=== PATIENT | female | born 1965 | race Caucasian/White ===

== ENCOUNTER 2016-12-07 10:13 | Emergency (ER) | payer BC ==
[~2016-12-07] VITALS: Ht 152.4 cm; Wt 101.6 kg
[~2016-12-07 10:13] MED LIST: CEPH500 PO; HYDR-3533 PO; MAGN500T4 PO; VITA500015 CHEW; [UNRECOGNIZED DRUG - OTHER]
[2016-12-07 10:15] VITALS: BP 135/92; PULSE 85; RESP 16; TEMP 98.2; O2SAT 99
[2016-12-07 10:50] VITALS: BP 129/75; PULSE 85; RESP 18; O2SAT 98
[2016-12-07] MEDS ORDERED: ONDANSETRON HCL 4 MG/2 ML VIAL IM ONE (11:00)
[2016-12-07] MEDS ORDERED: MORPHINE SULFATE 4 MG/ML INJ IM ONE (11:00)
[2016-12-07] MEDS ORDERED: ZOFR4TAB PO (11:01)
[2016-12-07] MEDS ORDERED: TRAM50TA PO (11:01)
--- NOTE | 2016-12-07 11:09 | PD ---
HPI Chief Complaint: Pain: Acute or Chronic Time Seen by Provider: 10:39 Travel History International Travel<30 days: No Contact w/Intl Traveler<30days: No Traveled to known affect area: No History of Present Illness HPI The patient was seen and examined in the presence of the nurse. This patient complains of abdominal pain. Location is right upper quadrant. She's had 3 days of pain. 2 days ago she went to [facility] emergency room and had stents of workup for this problem including lab studies and ultrasound. She reports that all the test was normal and she was discharged with medicine but she is still having pain so came here today. She had nausea but no vomiting or diarrhea or fever. No history of gallbladder or liver or pancreas disease. She has very rare alcohol use. Severity is moderate. No alleviating factors PFSH Past Medical History Thyroid Disease: Yes Influenza Vaccination: No ?: Not LMP: JOSE MIGUEL Menopausal: Yes Past Surgical History Appendectomy: Yes Genitourinary Surgery: Yes (BLADDER REMOVED) Tonsillectomy: Yes Social History Alcohol Use: Yes (RARELY) Tobacco Use: Yes (1 PPD) Substance Use: No Allergies-Medications (Allergen,Severity, Reaction): Coded Allergies: Ampicillin (Verified Allergy, Severe, 12/07/16) Erythromycin (Verified Allergy, Severe, 12/07/16) Penicillin (Verified Allergy, Severe, 12/07/16) Tetracycline (Verified Allergy, Severe, 12/07/16) Vancomycin (Verified Allergy, Severe, 12/07/16) Reported Meds & Prescriptions Reported Meds & Active Scripts Active Tramadol (Tramadol HCl) 50 Mg Tab 50 Mg PO Q6H PRN Zofran (Ondansetron HCl) 4 Mg Tab 4 Mg PO Q6HR PRN Review of Systems General / Constitutional: No: Fever Eyes: No: Visual changes HENT: No: Headaches Cardiovascular: No: Chest Pain or Discomfort Respiratory: No: Shortness of Breath Gastrointestinal: Positive: Nausea, Abdominal Pain Genitourinary: No: Dysuria Musculoskeletal: No: Pain Skin: No Rash Neurologic: No: Weakness Psychiatric: No: Depression Endocrine: No: Polydipsia Hematologic/Lymphatic: No: Easy Bruising Physical Exam Narrative GENERAL: Well-nourished, well-developed patient with epigastric and right upper quadrant pain SKIN: Focused skin assessment reveals no rash and nodules. Skin is Warm and dry. HEAD: Atraumatic. Normocephalic. EYES: Pupils equal and round. No scleral icterus. No injection or drainage. ENT: No nasal bleeding or discharge. Mucous membranes pink and moist. NECK: Trachea midline. No JVD. CARDIOVASCULAR: Regular rate and rhythm. No murmur appreciated. RESPIRATORY: No accessory muscle use. Clear to auscultation. Breath sounds equal bilaterally. GASTROINTESTINAL: Abdomen soft, some epigastric and right upper quadrant tenderness without rebound or guarding, nondistended. Hepatic and splenic margins not palpable. MUSCULOSKELETAL: No obvious deformities. No clubbing. No cyanosis. No edema. NEUROLOGICAL: Awake and alert. No obvious cranial nerve deficits. Motor grossly within normal limits. Normal speech. PSYCHIATRIC: Appropriate mood and affect; insight and judgment normal. Data Data Last Documented VS Vital Signs Date Time Temp Pulse Resp B/P Pulse Ox O2 Delivery O2 Flow Rate FiO2 12/07/16 10:50 85 18 129/75 98 Room Air 12/07/16 10:15 98.2 Orders Ondansetron Inj (Zofran Inj) (12/07/16 11:00) Morphine Inj (Morphine Inj) (12/07/16 11:00) MDM Medical Decision Making Medical Screen Exam Complete: Yes Emergency Medical Condition: Yes Medical Record Reviewed: Yes Differential Diagnosis Biliary colic, hepatitis, pancreatitis Narrative Course I have reviewed the patient's electronic medical record. This patient is here for epigastric and right upper quadrant pain 2 days after having normal labs and ultrasound at a different emergency room locally. I discussed options with the patient. The option to repeat the workup that was just done doesn't seem to be a very good one. I suggested we could obtain records from the outside facility and so I could look through the workup but the patient doesn't really want to wait on that. I doubt it would foreign exchange position clerk as the patient does not seem at all confused about what was done. She would rather me treat her symptoms and follow-up with primary care physician. I gave her injection of morphine and Zofran as well as prescription for tramadol and Zofran. She was taking norco but still having pain Advised to follow-up with her physician but return if she worsens Diagnosis Primary Impression: Abdominal pain Qualified Code: R10.13 - Epigastric pain Additional Instructions: The patient was advised to follow up with their physician and return if they worsen. The patient was warned about potential sedation for the medications they will receive on prescription. Med/Other Pt SpecificInfo: Prescription(s) given Scripts Tramadol 50 Mg Tab50 Mg PO Q6H PRN (PAIN) #25 TAB Ref 0 Prov:Umer Fernandez MD 12/07/16 Ondansetron (Zofran)4 Mg Tab4 Mg PO Q6HR PRN (NAUSEA OR VOMITING) #15 TAB Ref 0 Prov:Umer Fernandez MD 12/07/16 Disposition: 01 DISCHARGE HOME Condition: Stable Umer Fernandez MD December 07, 2016 11:09
== END 2016-12-07 12:01 | disposition home or self-care (01) ==
LOC: PHED 10:13
DX: R10.13 Epigastric pain (principal)
CPT/HCPCS: 96372; 99283; J2270; J2405

== ENCOUNTER 2016-12-20 09:20 | Emergency (ER) | payer BC ==
[~2016-12-20] VITALS: Ht 172.7 cm; Wt 98.0 kg
[~2016-12-20 09:20] MED LIST changes: -CEPH500 PO; -HYDR-3533 PO; -MAGN500T4 PO; +TRAM50TA PO; -VITA500015 CHEW; +ZOFR4TAB PO; -[UNRECOGNIZED DRUG - OTHER]
[2016-12-20 09:24] VITALS: BP 141/110; PULSE 96; RESP 14; TEMP 98.2; O2SAT 100
[2016-12-20] MEDS ORDERED: SODIUM CHLOR 0.9% 1000 ML INJ 1,000 ML IV SCH (09:35)
[2016-12-20] MEDS ORDERED: KETOROLAC TROMETHAMINE 30 MG/ML (IVP) VIAL IVP ONE (09:45)
[2016-12-20] MEDS ORDERED: HYDROmorphone HCL PF 1 MG/ML VIAL IVS ONE (09:45)
[2016-12-20] MEDS ORDERED: ONDANSETRON HCL 4 MG/2 ML VIAL IVP ONE (09:45)
[2016-12-20] MEDS ORDERED: SODIUM CHLORIDE 0.9% FLUSH 10 ML FLUSH IV FLUSH PRN (09:45)
--- NOTE | 2016-12-20 09:52 | PD ---
HPI Chief Complaint: Abdominal Pain Time Seen by Provider: 09:28 Travel History International Travel<30 days: No Contact w/Intl Traveler<30days: No Traveled to known affect area: No History of Present Illness HPI 51-year-old morbidly obese female who presents emergency Department with complaints of abdominal pain. As a young child patient has had a previous cystectomy with construction of neobladder, ureters connected to portion of bowel. Appendectomy at that time. She typically however does not have chronic abdominal pain. Over the course of the last 3 weeks she has been having primarily epigastric and right upper quadrant abdominal pain that has now radiated throughout the entire abdomen and is located mostly in the periumbilical region at the time. Patient was seen at [facility] approximately 2 weeks ago and reportedly had EKG, laboratory work and ultrasound of the abdomen that was negative. Seen here shortly thereafter by one of my colleagues and treated symptomatically and discharged without further workup. Patient states that her symptoms have been waxing and waning but flared over the last 2 days with intractable nausea, vomiting. No hematemesis. Bowel movements have been regular, no urinary symptoms. No fevers or chills. PFSH Past Medical History Thyroid Disease: Yes Menopausal: Yes Past Surgical History Appendectomy: Yes Genitourinary Surgery: Yes (BLADDER REMOVED) Tonsillectomy: Yes Social History Alcohol Use: Yes (RARELY) Tobacco Use: Yes (1 PPD) Substance Use: No Allergies-Medications (Allergen,Severity, Reaction): Coded Allergies: Ampicillin (Verified Allergy, Severe, 12/20/16) Erythromycin (Verified Allergy, Severe, 12/20/16) Penicillin (Verified Allergy, Severe, 12/20/16) Tetracycline (Verified Allergy, Severe, 12/20/16) Vancomycin (Verified Allergy, Severe, 12/20/16) Reported Meds & Prescriptions Reported Meds & Active Scripts Active Review of Systems Except as stated in HPI: all other systems reviewed are Neg Physical Exam Narrative GENERAL: Morbidly obese female in mild distress SKIN: Focused skin assessment warm/dry. HEAD: Normocephalic. EYES: No scleral icterus. No injection or drainage. ENT: Mucous membranes pink and moist. NECK: Supple CARDIOVASCULAR: Regular rate and rhythm. RESPIRATORY: No accessory muscle use. GASTROINTESTINAL: Multiple old surgical scars. Skin breakdown along the pannus skin fold on the lower abdomen. Abdomen soft, diffusely tender to palpation without rebound or guarding, nondistended. Hepatic and splenic margins not palpable. MUSCULOSKELETAL: No obvious deformities. No edema. NEUROLOGICAL: Awake and alert. Normal speech. PSYCHIATRIC: Appropriate mood and affect; insight and judgment normal. Data Data Last Documented VS Vital Signs Date Time Temp Pulse Resp B/P Pulse Ox O2 Delivery O2 Flow Rate FiO2 12/20/16 10:43 18 12/20/16 10:42 84 154/83 97 Room Air 12/20/16 09:24 98.2 Orders Complete Blood Count With Diff (12/20/16 09:35) Comprehensive Metabolic Panel (12/20/16 09:35) Lipase (12/20/16 09:35) Urinalysis - C+S If Indicated (12/20/16:35) Ct Abd/Pel W/O Iv Contrast (12/20/16 09:35) Iv Access Insert/Monitor (12/20/16 09:35) Ecg Monitoring (12/20/16:35) Oximetry (12/20/16:35) Ondansetron Inj (Zofran Inj) (12/20/16 09:45) Sodium Chlor 0.9% 1000 Ml Inj (Ns 1000 M (12/20/16 09:35) Sodium Chloride 0.9% Flush (Ns Flush) (12/20/16 09:45) Ketorolac Inj (Toradol Inj) (12/20/16 09:45) Hydromorphone Pf Inj (Dilaudid Pf Inj) (12/20/16 09:45) Ciprofloxacin 400 Mg Premix (Cipro 400 M (12/20/16 10:45) Labs Laboratory Tests Test 12/20/16 09:45 White Blood Count 15.1 TH/MM3 Red Blood Count 4.96 MIL/MM3 Hemoglobin 14.3 GM/DL Hematocrit 44.3 % Mean Corpuscular Volume 89.2 FL Mean Corpuscular Hemoglobin 28.9 PG Mean Corpuscular Hemoglobin 32.4 % Concent Red Cell Distribution Width 14.3 % Platelet Count 454 TH/MM3 Mean Platelet Volume 8.1 FL Neutrophils (%) (Auto) 79.2 % Lymphocytes (%) (Auto) 11.3 % Monocytes (%) (Auto) 8.2 % Eosinophils (%) (Auto) 0.5 % Basophils (%) (Auto) 0.8 % Neutrophils # (Auto) 12.0 TH/MM3 Lymphocytes # (Auto) 1.7 TH/MM3 Monocytes # (Auto) 1.2 TH/MM3 Eosinophils # (Auto) 0.1 TH/MM3 Basophils # (Auto) 0.1 TH/MM3 CBC Comment AUTO DIFF Differential Comment AUTO DIFF CONFIRMED Sodium Level 138 MEQ/L Potassium Level 4.2 MEQ/L Chloride Level 104 MEQ/L Carbon Dioxide Level 23.2 MEQ/L Anion Gap 11 MEQ/L Blood Urea Nitrogen 15 MG/DL Creatinine 0.97 MG/DL Estimat Glomerular Filtration 61 ML/MIN Rate Random Glucose 111 MG/DL Calcium Level 9.3 MG/DL Total Bilirubin 0.6 MG/DL Aspartate Amino Transf 20 U/L (AST/SGOT) Alanine Aminotransferase 19 U/L (ALT/SGPT) Alkaline Phosphatase 105 U/L Total Protein 8.2 GM/DL Albumin 3.5 GM/DL Lipase 72 U/L [facility] Medical Decision Making Medical Screen Exam Complete: Yes Emergency Medical Condition: Yes Medical Record Reviewed: Yes Differential Diagnosis 51-year-old female with history of cystectomy with neobladder formation, appendectomy here with complaint of 3 weeks of intermittent epigastric/right upper quadrant/periumbilical abdominal pain with 2 days of vomiting. Differential includes gastritis, peptic ulcer disease, pancreatitis, hepatobiliary pathology, bowel obstruction Narrative Course Patient placed on monitor, IV established and blood obtained. Patient given 4 mg Zofran, 30 mg Toradol, 0.5 mg Dilaudid, 1 L normal saline bolus. CBC, CMP, lipase, urinalysis notable for WBC 15.1. CT abdomen and pelvis showed air in the left intrarenal collecting system. Given lack of history of instrumentation possibility of infection not excluded though no perinephric stranding. Patient states she is unable to give urinalysis as she passes urine through the anus and it is intermixed with stool. Patient was treated for possible pyelonephritis, history of this frequently. Was given dose of Cipro here in the ER and will be discharged home with same. Diagnosis Primary Impression: Pyelonephritis Additional Impression: Abdominal pain Qualified Code: R10.9 - Abdominal pain, unspecified location Referrals: [facility] call for appointment Primary Care Physician call for appointment Additional Instructions: Nausea medications as needed. Antibiotics as prescribed. Tylenol, ibuprofen as needed for pain. Follow-up with primary care provider as instructed. Med/Other Pt SpecificInfo: Prescription(s) given Scripts Promethazine (Phenergan)50 Mg Tab50 Mg PO Q6H PRN (NAUSEA OR VOMITING) #10 TAB Ref 0 Prov:Suly Wray MD 12/20/16 Ciprofloxacin (Cipro)250 Mg [id number] Mg PO BID 7 Days Ref 0 Prov:Suly Wray MD 12/20/16 Disposition: 01 DISCHARGE HOME Condition: Stable Suly Wray MD December 20, 2016 09:51
[2016-12-20 10:11] VITALS: RESP 18; O2SAT 98
[2016-12-20 10:11] LABS: BASOPHIL # 0.1 TH/MM3 (0-0.2); BASOPHIL % 0.8 % (0.0-2.0); EOSINOPHIL # 0.1 TH/MM3 (0-0.4); EOSINOPHIL % 0.5 % (0.0-4.0); HEMATOCRIT 44.3 % (35.0-46.0); LYMPH % 11.3 % (9.0-44.0); LYMPHOCYTE # 1.7 TH/MM3 (1.0-4.8); MEAN CELL VOLUME 89.2 FL (80.0-100.0); MEAN CORPUSCULAR HEMOGLOBIN 28.9 PG (27.0-34.0); MEAN CORPUSCULAR HGB CONC 32.4 % (32.0-36.0); MONO % 8.2 % (0.0-8.0); NEUT % 79.2 % (16.0-70.0); PLATELET COUNT 454 TH/MM3 (150-450); RED BLOOD COUNT 4.96 MIL/MM3 (4.00-5.30); RED CELL DISTRIBUTION WIDTH 14.3 % (11.6-17.2); WHITE BLOOD COUNT 15.1 TH/MM3 (4.0-11.0)
[2016-12-20 10:12] LABS: HEMO FLAGS AUTO DIFF
[2016-12-20 10:22] LABS: CHLORIDE 104 MEQ/L (98-107); POTASSIUM 4.2 MEQ/L (3.5-5.1); SODIUM (NA) 138 MEQ/L (136-145)
[2016-12-20 10:26] LABS: ANION GAP 11 MEQ/L (5-15); BICARBONATE 23.2 MEQ/L (21.0-32.0); BLOOD UREA NITROGEN 15 MG/DL (7-18)
[2016-12-20 10:29] LABS: ALT (GPT) 19 U/L (10-53); AST (GOT) 20 U/L (15-37); GLOMERULAR FILTRATION RATE 61 ML/MIN (>89)
[2016-12-20 10:30] LABS: TOTAL BILIRUBIN ADULT 0.6 MG/DL (0.2-1.0)
[2016-12-20 10:31] LABS: SCAN/DIFF AUTO DIFF CONFIRMED
[2016-12-20 10:32] LABS: ALKALINE PHOSPHATASE 105 U/L (45-117)
--- NOTE | 2016-12-20 10:36 | RADHPO ---
EXAM DATE/TIME: 12/20/2016 10:16 [facility] COMPARISON: CT ABDOMEN & PELVIS W/O CONTRAST, February 11, 2016, 14:37. INDICATIONS : Epigastric and right upper quadrant pain. ORAL CONTRAST: No oral contrast ingested. RADIATION DOSE: 22.22 CTDIvol (mGy) MEDICAL HISTORY : None SURGICAL HISTORY : Appendectomy. 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 ENCOUNTER: Initial ACUITY: 3 weeks PAIN SCALE: 5/10 LOCATION: Right upper quadrant epigastric TECHNIQUE: Volumetric scanning of the abdomen and pelvis was performed. Using automated exposure control and ad justment of the mA and/or kV according to patient size, radiation dose was kept as low as reasonably achievable to obtain optimal diagnostic quality images. FINDINGS: Patient is status post appendectomy, and cystectomy with neobladder formation. No pleural or pericard ial effusions. Liver, gallbladder, spleen, pancreas, bilateral adrenal glands and right kidney are un remarkable. The left kidney is atrophic. There is air seen within the collecting system left kidney a s well as a nonobstructing 2.2 mm calculus left lower pole kidney. Uterus and left ovary are unremark able. There is no evidence of bowel obstruction. No inflammatory changes are seen. There is no eviden ce of hydronephrosis on the current examination. Osseous structures are intact. CONCLUSION: 1. Postsurgical changes are noted. 2. Air is seen within the left intrarenal collecting system. Is there a history of recent instrumenta tion? The possibility of infection is not excluded. There is no perinephric stranding. Sridhar Coulter MD on December 20, 2016 at 10:31 Board Certified Radiologist. This report was verified electronically.
[2016-12-20 10:42] VITALS: BP 154/83; PULSE 84; RESP 18; O2SAT 97
[2016-12-20] MEDS ORDERED: CIPROFLOXACIN 400 MG PREMIX 200 ML IV ONE (10:45)
[2016-12-20] MEDS ORDERED: CIPR250T52 PO (11:10)
[2016-12-20] MEDS ORDERED: PROM50TA PO (11:10)
[2016-12-20 11:58] VITALS: BP 126/84; PULSE 82; RESP 18; O2SAT 99
== END 2016-12-20 12:32 | disposition home or self-care (01) ==
LOC: PHED 09:20
DX: N12 Tubulo-interstitial nephritis, not specified as acute or chronic (principal); R10.9 Unspecified abdominal pain
CPT/HCPCS: 74176; 80053; 83690; 85025; 96361; 96374; 96375; J0744; J1170; J1885; J2405; J7030

== ENCOUNTER 2016-12-22 12:52 | Inpatient (IN) | payer BC ==
[~2016-12-22] VITALS: Ht 152.4 cm; Wt 99.2 kg
[~2016-12-22 12:52] MED LIST changes: +CIPR250T52 PO; +PROM50TA PO; -TRAM50TA PO; -ZOFR4TAB PO
[2016-12-22 12:57] VITALS: BP 150/101; PULSE 103; RESP 16; TEMP 98.3; O2SAT 97
[2016-12-22] MEDS ORDERED: AZTREONAM INJ 2,000 MG in SODIUM CHLORIDE 0.9% INJ 100 ML IV STA (13:19)
[2016-12-22] MEDS ORDERED: HYDROmorphone HCL PF 1 MG/ML VIAL IV ONE (13:30)
[2016-12-22] MEDS ORDERED: ONDANSETRON HCL 4 MG/2 ML VIAL IV ONE (13:30)
--- NOTE | 2016-12-22 13:31 | PD ---
HPI Chief Complaint: Abdominal Pain Time Seen by Provider: 13:08 Travel History International Travel<30 days: No Contact w/Intl Traveler<30days: No Traveled to known affect area: No History of Present Illness HPI This 51-year-old female is complaining of abdominal pain. She's been having abdominal pain for several weeks. It has been getting worse the past week. She was a patient in the emergency department last Wednesday with this complaint. At that time her white count was 15,000. A CT scan was done which showed some air in the left infrarenal collecting system. She was at on antibiotics. She says that since being here she's been having increasing pain and vomiting. She says that she's been having fever. She says she has not been able to eat for a week. She has a history of multiple lower abdominal surgeries. She had 9 major operations before the age of 10. Her bladder was apparently not functioning all on the multiple surgeries to try to repair it. He was ultimately removed in her ureters drain into her intestines. There is no way to obtain a urine sample from this lady. She has been told that she has one for kidney. She has not had any surgery since he age of 10. She has had an appendectomy done. PFSH Past Medical History Medical History: Denies Significant Hx Hx Anticoagulant Therapy: No Diabetes: No Thyroid Disease: Yes Tetanus Vaccination: > 5 Years Influenza Vaccination: No ?: Not Menopausal: Yes Past Surgical History Appendectomy: Yes Genitourinary Surgery: Yes (BLADDER REMOVED) Tonsillectomy: Yes Social History Alcohol Use: No Tobacco Use: Yes (/2 PPD) Substance Use: No Allergies-Medications (Allergen,Severity, Reaction): Coded Allergies: Ampicillin (Verified Allergy, Severe, 12/22/16) Erythromycin (Verified Allergy, Severe, 12/22/16) Penicillin (Verified Allergy, Severe, 12/22/16) Tetracycline (Verified Allergy, Severe, 12/22/16) Vancomycin (Verified Allergy, Severe, 12/22/16) Reported Meds & Prescriptions Reported Meds & Active Scripts Active Phenergan (Promethazine HCl) 50 Mg Tab 50 Mg PO Q6H PRN Cipro (Ciprofloxacin HCl) 250 Mg Tab 750 Mg PO BID 7 Days Review of Systems General / Constitutional: Positive: Fever, Chills Eyes: No: Diploplia, Blurred Vision HENT: No: Headaches, Vertigo Cardiovascular: No: Chest Pain or Discomfort, Palpitations Respiratory: No: Cough, Shortness of Breath Gastrointestinal: Positive: Vomiting, Abdominal Pain, No: Hematemesis, Hematochezia Skin: No Rash Neurologic: No: Weakness Endocrine: No: Heat Intolerance, Cold Intolerance Hematologic/Lymphatic: No: Easy Bruising Physical Exam Narrative GENERAL well-developed female. She is uncomfortable with pain SKIN: Focused skin assessment warm/dry. HEAD: Atraumatic. Normocephalic. EYES: Pupils equal and round. No scleral icterus. No injection or drainage. ENT: No nasal bleeding or discharge. Mucous membranes pink and moist. NECK: Trachea midline. No JVD. CARDIOVASCULAR: Regular rate and rhythm. No murmur appreciated. RESPIRATORY: No accessory muscle use. Clear to auscultation. Breath sounds equal bilaterally. GASTROINTESTINAL: Abdomen soft, there are multiple lower abdominal scars. She is quite tender throughout the abdomen and more so on the right side. There is no rigidity MUSCULOSKELETAL: No obvious deformities. No clubbing. No cyanosis. No edema. NEUROLOGICAL: Awake and alert. No obvious cranial nerve deficits. Motor grossly within normal limits. Normal speech. PSYCHIATRIC: Appropriate mood and affect; insight and judgment normal. Data Data Last Documented VS Vital Signs Date Time Temp Pulse Resp B/P Pulse Ox O2 Delivery O2 Flow Rate FiO2 12/22/16 15:25 92 16 156/92 96 Room Air 12/22/16 12:57 98.3 Orders Complete Blood Count With Diff (12/22/16 13:19) Comprehensive Metabolic Panel (12/22/16 13:19) Prothrombin Time / Inr (Pt) (12/22/16 13:19) Act Partial Throm Time (Ptt) (12/22/16 13:19) Lactic Acid Sepsis Protocol (12/22/16 13:19) Urinalysis - C+S If Indicated (12/22/16 13:19) Blood Culture (12/22/16 13:19) Chest, Single Ap (12/22/16 13:19) Blood Glucose (12/22/16 13:19) Iv Access Insert/Monitor (12/22/16 13:19) Oximetry (12/22/16 13:19) Hydromorphone Pf Inj (Dilaudid Pf Inj) (12/22/16 13:30) Ondansetron Inj (Zofran Inj) (12/22/16 13:30) Ct Abd/Pel W Iv Contrast(Rout) (12/22/16 13:19) Aztreonam Inj (Azactam Inj) (12/22/16 13:19) Sodium Chlor 0.9% 1000 Ml Inj (Ns 1000 M (12/22/16 13:45) Lipase (12/22/16 14:15) Iohexol 350 Inj (Omnipaque 350 Inj) (12/22/16 15:20) Ondansetron Inj (Zofran Inj) (12/22/16 15:45) Labs Laboratory Tests Test 12/22/16 12/22/16 12/22/16 13:40 13:45 14:15 Lactic Acid Level 1.1 mmol/L White Blood Count 15.9 TH/MM3 Red Blood Count 4.42 MIL/MM3 Hemoglobin 13.4 GM/DL Hematocrit 39.0 % Mean Corpuscular Volume 88.3 FL Mean Corpuscular Hemoglobin 30.3 PG Mean Corpuscular Hemoglobin 34.3 % Concent Red Cell Distribution Width 13.2 % Platelet Count 437 TH/MM3 Mean Platelet Volume 7.6 FL Neutrophils (%) (Auto) 76.7 % Lymphocytes (%) (Auto) 9.5 % Monocytes (%) (Auto) 6.9 % Eosinophils (%) (Auto) 4.1 % Basophils (%) (Auto) 2.8 % Neutrophils # (Auto) 12.2 TH/MM3 Lymphocytes # (Auto) 1.5 TH/MM3 Monocytes # (Auto) 1.1 TH/MM3 Eosinophils # (Auto) 0.7 TH/MM3 Basophils # (Auto) 0.4 TH/MM3 CBC Comment DIFF FINAL Differential Comment Prothrombin Time 11.9 SEC Prothromb Time International 1.1 RATIO Ratio Activated Partial 26.0 SEC Thromboplast Time Sodium Level 141 MEQ/L Potassium Level 3.6 MEQ/L Chloride Level 111 MEQ/L Carbon Dioxide Level 22.8 MEQ/L Anion Gap 7 MEQ/L Blood Urea Nitrogen 13 MG/DL Creatinine 0.85 MG/DL Estimat Glomerular Filtration 71 ML/MIN Rate Random Glucose 109 MG/DL Calcium Level 8.3 MG/DL Total Bilirubin 0.7 MG/DL Aspartate Amino Transf 6 U/L (AST/SGOT) Alanine Aminotransferase 10 U/L (ALT/SGPT) Alkaline Phosphatase 74 U/L Total Protein 6.2 GM/DL Albumin 3.0 GM/DL Lipase 68 U/L [facility] Medical Decision Making Medical Screen Exam Complete: Yes Emergency Medical Condition: Yes Medical Record Reviewed: Yes Differential Diagnosis Differential includes pyelonephritis, bowel obstruction cholecystitis, pancreatitis Narrative Course White count today is 15.9. When she was here a few days ago was 15.1. Patient says there is no way to obtain a sample for urinalysis because her ureter empties into her colon. A CT scan of the abdomen and pelvis was repeated. The second portion of the duodenum demonstrates wall thickening and pericolic enteric inflammation could be secondary to duodenitis or related to inflammation related to an ulcer. Stable appearance of the kidneys with an atopic type left kidney and air in the collecting system. We are not able to test ladjeet's urine so she may have a UTI which has been refractory to previous treatment. She is having abdominal pain with vomiting and has failed outpatient treatment Diagnosis Primary Impression: Abdominal pain Qualified Code: R10.10 - Pain of upper abdomen Additional Impression: UTI (urinary tract infection) Admitting Information Admitting Physician Requests: Admit Refugio Colón MD December 22, 2016 13:30
[2016-12-22] MEDS ORDERED: SODIUM CHLOR 0.9% 1000 ML INJ 1,000 ML IV ONE (13:45)
--- NOTE | 2016-12-22 13:52 | RADHPO ---
EXAM DATE/TIME: 12/22/2016 13:34 [facility] COMPARISON: No previous studies available for comparison. INDICATIONS : Patient has had pain under her right breast and ribs for two weeks. Patient is a smoker. MEDICAL HISTORY : None. SURGICAL HISTORY : Appendectomy. Tonsillectomy.Cystectomy with construction of mingo-bladder with ureters ENCOUNTER: Initial ACUITY: 2 weeks PAIN SCORE: 8/10 LOCATION: Right chest FINDINGS: A single view of the chest demonstrates the lungs to be symmetrically aerated without evidence of mas s, infiltrate or effusion. The cardiomediastinal contours are unremarkable. Osseous structures are intact. CONCLUSION: No acute disease. Fabio Hernandez MD on December 22, 2016 at 13:51 Board Certified Radiologist. This report was verified electronically.
[2016-12-22 13:55] VITALS: O2SAT 97
[2016-12-22 13:55] LABS: AUTOMATED NEUTROPHIL # 12.2 TH/MM3 (1.8-7.7); BASOPHIL # 0.4 TH/MM3 (0-0.2); BASOPHIL % 2.8 % (0.0-2.0); EOSINOPHIL # 0.7 TH/MM3 (0-0.4); EOSINOPHIL % 4.1 % (0.0-4.0); LYMPH % 9.5 % (9.0-44.0); LYMPHOCYTE # 1.5 TH/MM3 (1.0-4.8); MEAN CELL VOLUME 88.3 FL (80.0-100.0); MEAN CORPUSCULAR HEMOGLOBIN 30.3 PG (27.0-34.0); MEAN CORPUSCULAR HGB CONC 34.3 % (32.0-36.0); MONO % 6.9 % (0.0-8.0); NEUT % 76.7 % (16.0-70.0); PLATELET COUNT 437 TH/MM3 (150-450); RED BLOOD COUNT 4.42 MIL/MM3 (4.00-5.30); RED CELL DISTRIBUTION WIDTH 13.2 % (11.6-17.2); WHITE BLOOD COUNT 15.9 TH/MM3 (4.0-11.0)
[2016-12-22 14:01] LABS: HEMO FLAGS DIFF FINAL
[2016-12-22 14:11] LABS: INTERNATIONAL NORMALIZED RATIO 1.1 RATIO; PROTHROMBIN TIME - PATIENT 11.9 SEC (9.8-11.6)
[2016-12-22 14:31] LABS: CHLORIDE 111 MEQ/L (98-107); POTASSIUM 3.6 MEQ/L (3.5-5.1); SODIUM (NA) 141 MEQ/L (136-145)
[2016-12-22 14:52] LABS: ALKALINE PHOSPHATASE 74 U/L (45-117); ALT (GPT) 10 U/L (10-53); ANION GAP 7 MEQ/L (5-15); AST (GOT) 6 U/L (15-37); BICARBONATE 22.8 MEQ/L (21.0-32.0); BLOOD UREA NITROGEN 13 MG/DL (7-18); GLOMERULAR FILTRATION RATE 71 ML/MIN (>89); TOTAL BILIRUBIN ADULT 0.7 MG/DL (0.2-1.0)
[2016-12-22 15:00] VITALS: BP 161/104; PULSE 87; RESP 18; TEMP 98.1; O2SAT 97
[2016-12-22] MEDS ORDERED: IOHEXOL 350 MG/ML 10 ML VIAL (for RAD DIAG) IV ONE (15:20)
[2016-12-22 15:25] VITALS: BP 156/92; PULSE 92; RESP 16; O2SAT 96
--- NOTE | 2016-12-22 15:34 | RADHPO ---
EXAM DATE/TIME: 12/22/2016 15:06 [place] COMPARISON: CT ABDOMEN & PELVIS W/O CONTRAST, February 11, 2016, 14:37. CT ABDOMEN & PELVIS W/O CONTRAST, December 20 17, 10:16. INDICATIONS : Increasing upper quadrant pain and fever since prior scan done two days ago. IV CONTRAST: 85 cc Omnipaque 350 (iohexol) IV ORAL CONTRAST: No oral contrast ingested. RADIATION DOSE: 22.27 CTDIvol (mGy) MEDICAL HISTORY : None SURGICAL HISTORY : Appendectomy. 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 ENCOUNTER: [facility] ACUITY: 2 days PAIN SCALE: 7/10 LOCATION: upper quadrant TECHNIQUE: Volumetric scanning of the abdomen and pelvis was performed. Using automated exposure control and ad justment of the mA and/or kV according to patient size, radiation dose was kept as low as reasonably achievable to obtain optimal diagnostic quality images. FINDINGS: LOWER LUNGS: The visualized lower lungs are clear. LIVER: Homogeneous density with 5 mm low-density lesion in the right liver that is too small to characterize . There is focal fat adjacent to the falciform ligament. There is no dilation of the biliary tree. No calcified gallstones. SPLEEN: Normal size without lesion. PANCREAS: Pancreatic body and tail demonstrate no abnormality. There are inflammatory changes adjacent to the p ancreatic head adjacent to the thickened duodenum. KIDNEYS: Left kidney remains atrophic with air in the renal collecting system. There is a stable 2 mm nonobstr ucting stone in the left lower pole renal collecting system. ADRENAL GLANDS: Within normal limits. VASCULAR: There is no aortic aneurysm. BOWEL/MESENTERY: The stomach and colon demonstrate no acute abnormality. The second portion of the duodenum demonstrat es wall thickening. There has been prior bowel surgery in the left lower quadrant and the ureters may connect with a segment of colon. There is no free intraperitoneal air or fluid. ABDOMINAL WALL: Within normal limits. RETROPERITONEUM: There is no lymphadenopathy. The inflammatory changes are present in the anterior pararenal space adj acent to the thickened duodenum. BLADDER: Urinary bladder is surgically absent. REPRODUCTIVE: Within normal limits. INGUINAL: There is no lymphadenopathy or hernia. MUSCULOSKELETAL: There is stable widening of the pubic symphysis and stable sclerosis of the sacroiliac joints bilater ally. CONCLUSION: 1. The second portion the duodenum demonstrates wall thickening and perienteric inflammation. These i nflammatory changes abut the pancreatic head as well. A duodenitis is the favored etiology and could be infectious or related to inflammation related to ulcer. Alternatively, a groove pancreatitis coul d give a similar appearance. 2. Stable appearance of the kidneys with atrophic left kidney and air in the collecting system in thi s patient with history of a cystectomy and neobladder creation. 3. There is a 5 mm low-density lesion in the liver that is too small to characterize. Virgil Holt MD on December 22, 2016 at 15:23 Board Certified Radiologist. This report was verified electronically.
[2016-12-22] MEDS ORDERED: ONDANSETRON HCL 4 MG/2 ML VIAL IV PUSH ONE (15:45)
[2016-12-22] MEDS ORDERED: SODIUM CHLOR 0.9% 1000 ML INJ 1,000 ML IV SCH (16:47)
[2016-12-22] MEDS ORDERED: NALOXONE HCL 0.4 MG/ML AMP IV PRN (17:00)
[2016-12-22] MEDS ORDERED: SODIUM CHLORIDE 0.9% FLUSH 10 ML FLUSH IV FLUSH PRN (17:00)
[2016-12-22] MEDS ORDERED: ENALAPRILAT 1.25 MG/ML VIAL IV PUSH PRN (17:45)
[2016-12-22] MEDS ORDERED: HYDROmorphone HCL PF 1 MG/ML VIAL IV PUSH PRN (17:45)
--- NOTE | 2016-12-22 17:47 | HHI.HP ---
[facility] Service [facility] Primary Care Physician No Primary Care Physician Admission Diagnosis ABDOMINAL PAIN, UTI Diagnoses: (1) Abdominal pain Diagnosis: Principal (2) UTI (urinary tract infection) Diagnosis: Principal (3) Duodenitis Diagnosis: Principal (4) Nicotine dependence Diagnosis: Secondary Travel History International Travel<30 Days: No Contact w/Intl Traveler <30 Da: No Traveled to Known Affected Are: No Sepsis Criteria SIRS Criteria (2 or more): Heart rate over 90, WBC > 95451, < 4000 or > 10% bands Sepsis Criteria (SIRS+source): Infect source susp/known History of Present Illness Mrs. Marley is a 51-year-old female. She has a history of 8-9 blood or surgeries as a child and currently has both ureters and tingling into the small intestine. She is here today with complaints of fatigue and upper abdominal pain. She reports that approximately once every 2 years she ends up getting pyelonephritis. Typically her symptoms are severe back pain and fevers. She has been feeling fevers and chills at home but her pain is located at the epigastrium. Imaging shows evidence of duodenitis. Given her abnormal urinary anatomy there would be no way to test make sure that she doesn't have development of a urinary tract infection again. In the past she has had an appendectomy and a tonsillectomy. She is a smoker and smokes approximately one half pack per day. Leukocytosis is present. Abdominal pain is her primary complaint. She requests pain medicine when seen. Leukocytosis and tachycardia are present, no fever, with source of duodenitis as likely bacterial infection disqualifies her for sepsis. Review of Systems Constitutional: DENIES: Diaphoretic episodes, Fever, Chills Eyes: DENIES: Blurred vision, Diplopia Ears, nose, mouth, throat: DENIES: Tinnitus, Hearing loss Respiratory: DENIES: Cough, Shortness of breath Cardiovascular: DENIES: Chest pain, Palpitations, Syncope Gastrointestinal: COMPLAINS OF: Abdominal pain, DENIES: Black stools, Bloody stools Musculoskeletal: DENIES: Joint pain, Muscle aches Integumentary: DENIES: Abnormal pigmentation Hematologic/lymphatic: DENIES: Bruising Immunologic/allergic: DENIES: Eczema Neurologic: DENIES: Abnormal gait Psychiatric: DENIES: Anxiety, Confusion Past Family Social History Past Medical History Chronic kidney disease (4 kidneys and 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) Nicotine dependence Recurrent pyelonephritis Past Surgical History Appendectomy Tonsillectomy Ureters surgically placed to drain and small bowel 8-9 Bladder surgeries as a child Reported Medications Reported Meds & Active Scripts Active Phenergan (Promethazine HCl) 50 Mg Tab 50 Mg PO Q6H PRN Cipro (Ciprofloxacin HCl) 250 Mg Tab 750 Mg PO BID 7 Days Allergies: Coded Allergies: Ampicillin (Verified Allergy, Severe, 12/22/16) Erythromycin (Verified Allergy, Severe, 12/22/16) Penicillin (Verified Allergy, Severe, 12/22/16) Tetracycline (Verified Allergy, Severe, 12/22/16) Vancomycin (Verified Allergy, Severe, 12/22/16) Family History Lung cancer and mother Social History Smoking one half pack per day No alcohol abuse No drug abuse Physical Exam Vital Signs Vital Signs Date Time Temp Pulse Resp B/P Pulse Ox O2 Delivery O2 Flow Rate FiO2 12/22/16 15:25 92 16 156/92 96 Room Air 12/22/16 14:30 18 12/22/16 13:55 97 Room Air 12/22/16 12:57 98.3 103 16 150/101 97 Physical Exam GENERAL: This is a well-nourished, well-developed patient, in no apparent distress. SKIN: No rashes, ecchymoses or lesions. Cool and dry. HEAD: Atraumatic. Normocephalic. No temporal or scalp tenderness. EYES: Pupils equal round and reactive. Extraocular motions intact. No scleral icterus. No injection or drainage. ENT: Nose without bleeding, purulent drainage or septal hematoma. Throat without erythema, tonsillar hypertrophy or exudate. Uvula midline. Airway patent. NECK: Trachea midline. No JVD or lymphadenopathy. Supple, nontender, no meningeal signs. CARDIOVASCULAR: Regular rate and rhythm without murmurs, gallops, or rubs. RESPIRATORY: Clear to auscultation. Breath sounds equal bilaterally. No wheezes , rales, or rhonchi. GASTROINTESTINAL: Abdomen soft, non-tender, nondistended. No hepato-splenomegaly , or palpable masses. No guarding. MUSCULOSKELETAL: Extremities without clubbing, cyanosis, or edema. No joint tenderness, effusion, or edema noted. No calf tenderness. Negative Homans sign bilaterally. NEUROLOGICAL: Awake and alert. Cranial nerves II through XII intact. Motor and sensory grossly within normal limits. Five out of 5 muscle strength in all muscle groups. Normal speech. Laboratory Laboratory Tests Test 12/22/16 12/22/16 12/22/16 13:40 13:45 14:15 Lactic Acid Level 1.1 White Blood Count 15.9 Red Blood Count 4.42 Hemoglobin 13.4 Hematocrit 39.0 Mean Corpuscular Volume 88.3 Mean Corpuscular Hemoglobin 30.3 Mean Corpuscular Hemoglobin 34.3 Concent Red Cell Distribution Width 13.2 Platelet Count 437 Mean Platelet Volume 7.6 Neutrophils (%) (Auto) 76.7 Lymphocytes (%) (Auto) 9.5 Monocytes (%) (Auto) 6.9 Eosinophils (%) (Auto) 4.1 Basophils (%) (Auto) 2.8 Neutrophils # (Auto) 12.2 Lymphocytes # (Auto) 1.5 Monocytes # (Auto) 1.1 Eosinophils # (Auto) 0.7 Basophils # (Auto) 0.4 CBC Comment DIFF FINAL Differential Comment Prothrombin Time 11.9 Prothromb Time International 1.1 Ratio Activated Partial 26.0 Thromboplast Time Sodium Level 141 Potassium Level 3.6 Chloride Level 111 Carbon Dioxide Level 22.8 Anion Gap 7 Blood Urea Nitrogen 13 Creatinine 0.85 Estimat Glomerular Filtration 71 Rate Random Glucose 109 Calcium Level 8.3 Total Bilirubin 0.7 Aspartate Amino Transf 6 (AST/SGOT) Alanine Aminotransferase 10 (ALT/SGPT) Alkaline Phosphatase 74 Total Protein 6.2 Albumin 3.0 Lipase 68 Date/Time Procedure Status Source Growth 12/22/16 13:45 Aerobic Blood Culture Received Blood Peripheral Pending 12/22/16 13:45 Anaerobic Blood Culture Received Blood Peripheral Pending Result Diagram: 12/22/16 1345 12/22/16 1415 Imaging Last Impressions Chest X-Ray 12/22/16 1319 Signed Impressions: Service Date/Time: Thursday, December 22, 2016 13:34 - CONCLUSION: No acute disease. Fabio Hernandez MD Abdomen/Pelvis CT 12/22/16 1319 Signed Impressions: Service Date/Time: Thursday, December 22, 2016 15:06 - CONCLUSION: 1. The second portion the duodenum demonstrates wall thickening and perienteric inflammation. These inflammatory changes abut the pancreatic head as well. A duodenitis is the favored etiology and could be infectious or related to inflammation related to ulcer. Alternatively, a groove pancreatitis could give a similar appearance. 2. Stable appearance of the kidneys with atrophic left kidney and air in the collecting system in this patient with history of a cystectomy and neobladder creation. 3. There is a 5 mm low-density lesion in the liver that is too small to characterize. Virgil Holt MD Septic Shock Reassessment Heart: Regular rate and rhythm Lungs: Clear Skin: Warm Peripheral Pulses: Bounding Right Radial Bounding Left Radial Capillary Refill: Brisk Assessment and Plan Problem List: (1) Pyelonephritis ICD Code: N12 Status: Acute (2) UTI (urinary tract infection) ICD Code: N39.0 Status: Acute (3) Abdominal pain ICD Code: R10.9 Status: Acute (4) Duodenitis ICD Code: K29.80 Status: Acute (5) Nicotine dependence ICD Code: F17.200 Status: Acute Assessment and Plan Assessment and plan 51-year-old female with a history of recurrent pyelonephritis who is here with abdominal pain. Sepsis IV hydration Monitor tachycardia and leukocytosis Telemetry Follow for resolution Acute abdominal pain. Duodenitis Aztreonam Flagyl IV hydration Clear fluids by mouth intake Hypertension When necessary enalapril Possible UTI Possible pyelonephritis Chronic kidney disease Aztreonam Is no way to obtain a urine sample Follow renal function Nicotine dependence NicoDerm placed DVT prophylaxis Lovenox Physician Certification 2 Midnight Certification Type: Admission for Inpatient Services Order for Inpatient Services The services are ordered in accordance with Medicare regulations or non- Medicare payer requirements, as applicable. In the case of services not specified as inpatient-only, they are appropriately provided as inpatient services in accordance with the 2-midnight benchmark. Estimated LOS (days): 3 days is the estimated time the patient will need to remain in the hospital, assuming treatment plan goals are met and no additional complications. Post-Hospital Plan: Home Problem Qualifiers (1) Abdominal pain: Qualified Code: R10.10 - Pain of upper abdomen Ryan Jalloh MD December 22, 2016 17:47
[2016-12-22] MEDS ORDERED: HYDROmorphone HCL PF 1 MG/ML VIAL IV PUSH ONE (18:00)
[2016-12-22] MEDS: SODIUM CHLOR 0.9% 1000 ML INJ 1,000 ML IV SCH ×2 (18:04→21:39)
[2016-12-22] MEDS: ENOXAPARIN SODIUM 40 MG/0.4 ML SYRINGE SQ SCH (18:14)
[2016-12-22] MEDS: metroNIDAZOLE 500 MG INJ 100 ML IV SCH (18:14)
[2016-12-22 20:00] VITALS: BP 155/80; PULSE 90; RESP 20; TEMP 97.9; O2SAT 93
[2016-12-22] MEDS: SODIUM CHLORIDE 0.9% FLUSH 10 ML FLUSH IV FLUSH SCH (21:00)
[2016-12-22] MEDS: ONDANSETRON HCL 4 MG/2 ML VIAL IVP PRN (21:38)
[2016-12-22] MEDS: AZTREONAM INJ 2,000 MG in SODIUM CHLORIDE 0.9% INJ 100 ML IV SCH (21:39)
[2016-12-23] VITALS: BP 137/103; PULSE 86; RESP 21; TEMP 97.4; O2SAT 99
[2016-12-23] MEDS: PANTOPRAZOLE SODIUM 40 MG VIAL IV PUSH SCH ×2 (00:35→09:31)
[2016-12-23] MEDS: HYDROmorphone HCL PF 1 MG/ML VIAL IV PUSH PRN ×4 (00:35→14:13)
[2016-12-23] MEDS: metroNIDAZOLE 500 MG INJ 100 ML IV SCH ×3 (02:58→17:25)
[2016-12-23] MEDS: ONDANSETRON HCL 4 MG/2 ML VIAL IVP PRN ×3 (03:47→17:26)
[2016-12-23] MEDS: AZTREONAM INJ 2,000 MG in SODIUM CHLORIDE 0.9% INJ 100 ML IV SCH ×3 (06:32→23:07)
[2016-12-23 07:42] LABS: AUTOMATED NEUTROPHIL # 9.5 TH/MM3 (1.8-7.7); BASOPHIL # 0.1 TH/MM3 (0-0.2); BASOPHIL % 0.4 % (0.0-2.0); EOSINOPHIL # 0.6 TH/MM3 (0-0.4); EOSINOPHIL % 4.7 % (0.0-4.0); LYMPH % 14.8 % (9.0-44.0); LYMPHOCYTE # 1.9 TH/MM3 (1.0-4.8); MEAN CELL VOLUME 90.1 FL (80.0-100.0); MEAN CORPUSCULAR HEMOGLOBIN 30.3 PG (27.0-34.0); MEAN CORPUSCULAR HGB CONC 33.6 % (32.0-36.0); MONO % 8.6 % (0.0-8.0); NEUT % 71.5 % (16.0-70.0); PLATELET COUNT 373 TH/MM3 (150-450); RED BLOOD COUNT 3.89 MIL/MM3 (4.00-5.30); RED CELL DISTRIBUTION WIDTH 13.9 % (11.6-17.2); WHITE BLOOD COUNT 13.2 TH/MM3 (4.0-11.0)
[2016-12-23 07:45] LABS: HEMO FLAGS DIFF FINAL
[2016-12-23 07:49] LABS: CHLORIDE 111 MEQ/L (98-107); POTASSIUM 3.6 MEQ/L (3.5-5.1); SODIUM (NA) 141 MEQ/L (136-145)
[2016-12-23 07:53] LABS: ANION GAP 10 MEQ/L (5-15); BICARBONATE 19.7 MEQ/L (21.0-32.0); BLOOD UREA NITROGEN 9 MG/DL (7-18)
[2016-12-23 07:56] LABS: ALT (GPT) 12 U/L (10-53); AST (GOT) 8 U/L (15-37)
[2016-12-23 07:57] LABS: GLOMERULAR FILTRATION RATE 83 ML/MIN (>89)
[2016-12-23 07:58] LABS: TOTAL BILIRUBIN ADULT 0.4 MG/DL (0.2-1.0)
[2016-12-23 07:59] LABS: ALKALINE PHOSPHATASE 71 U/L (45-117)
[2016-12-23 08:00] VITALS: BP 134/96; PULSE 93; RESP 17; TEMP 98.1; O2SAT 98
[2016-12-23] MEDS: SODIUM CHLORIDE 0.9% FLUSH 10 ML FLUSH IV FLUSH SCH ×2 (09:31→21:00)
[2016-12-23] MEDS: SODIUM CHLOR 0.9% 1000 ML INJ 1,000 ML IV SCH ×2 (09:32→17:45)
--- NOTE | 2016-12-23 09:33 | HHI.PR ---
Subjective Remarks Slight decrease in nausea and vomiting this morning. Pain remains. Blood pressures remain slightly elevated. She is not yet ready for diet advancement. Objective Vital Signs Date Time Temp Pulse Resp B/P Pulse Ox O2 Delivery O2 Flow Rate FiO2 12/23/16 08:00 98.1 93 17 134/96 98 12/23/16 05:13 19 12/23/16 00:00 97.4 86 21 137/103 99 12/22/16 20:00 97.9 90 20 155/80 93 12/22/16 15:25 92 16 156/92 96 Room Air 12/22/16 15:00 98.1 87 18 161/104 97 12/22/16 14:30 18 12/22/16 13:55 97 Room Air 12/22/16 12:57 98.3 103 16 150/101 97 I/O 12/22/16 12/22/16 12/22/16 12/23/16 12/23/16 12/23/16 06:59 14:59 22:59 06:59 14:59 22:59 Intake Total 1340 ml 240 ml Balance 1340 ml 240 ml Intake Oral 240 ml 240 ml IV Total 1100 ml # Voids 1 2 # Bowel Movements 0 0 Result Diagram: 12/23/16 0545 12/23/16 0545 Imaging Last Impressions Chest X-Ray 12/22/16 1319 Signed Impressions: Service Date/Time: Thursday, December 22, 2016 13:34 - CONCLUSION: No acute disease. Fabio Hernandez MD Abdomen/Pelvis CT 12/22/16 1319 Signed Impressions: Service Date/Time: Thursday, December 22, 2016 15:06 - CONCLUSION: 1. The second portion the duodenum demonstrates wall thickening and perienteric inflammation. These inflammatory changes abut the pancreatic head as well. A duodenitis is the favored etiology and could be infectious or related to inflammation related to ulcer. Alternatively, a groove pancreatitis could give a similar appearance. 2. Stable appearance of the kidneys with atrophic left kidney and air in the collecting system in this patient with history of a cystectomy and neobladder creation. 3. There is a 5 mm low-density lesion in the liver that is too small to characterize. Virgil Holt MD Objective Remarks GENERAL: NAD, A&Ox3 SKIN: Warm and dry. HEAD: Normocephalic. EYES: No scleral icterus. No injection or drainage. NECK: Supple, trachea midline. No JVD or lymphadenopathy. CARDIOVASCULAR: Regular rate and rhythm without murmurs, gallops, or rubs. RESPIRATORY: Breath sounds equal bilaterally. No accessory muscle use. GASTROINTESTINAL: Abdomen soft, nondistended. She has mild tenderness in the epigastrium. MUSCULOSKELETAL: No cyanosis, or edema. Medications and IVs Administered Medications Medications (Trade) Dose Ordered Sig/Rohan Route PRN Reason Start Time Stop Time Status Last Admin Dose Admin Ondansetron HCl (Zofran Inj) 4 mg Q6H PRN IVP NAUSEA OR VOMITING 12/22/16 17:00 12/23/16 03:47 Enoxaparin Sodium 40 mg 40 mg Q24H SQ 12/22/16 18:00 12/22/16 18:14 Sodium Chloride 1,000 ml @ 125 mls/hr Q8H IV 12/22/16 17:45 12/22/16 21:39 Aztreonam 2000 mg/ Sodium Chloride 100 ml @ 200 mls/hr Q8H IV 12/22/16 22:00 12/23/16 06:32 Metronidazole (Flagyl 500 Mg Inj) 100 ml @ 100 mls/hr Q8H IV 12/22/16 18:00 12/23/16 02:58 Pantoprazole Sodium (Protonix Inj) 40 mg DAILY IV PUSH 12/22/16 23:45 12/23/16 00:35 Hydromorphone HCl (Dilaudid Pf Inj) 1 mg Q4H PRN IV PUSH PAIN SCALE 4 TO 10 12/23/16 01:45 12/23/16 04:43 A/P Problem List: (1) Nicotine dependence ICD Code: F17.200 (2) Pyelonephritis ICD Code: N12 (3) UTI (urinary tract infection) ICD Code: N39.0 (4) Abdominal pain ICD Code: R10.9 (5) Duodenitis ICD Code: K29.80 Assessment and Plan Assessment and plan 51-year-old female with a history of recurrent pyelonephritis who is here with abdominal pain. Slight improvements overnight on treatment. Continue liquid diet. Continue to monitor. Sepsis has resolved. Sepsis Resolved Acute abdominal pain. Duodenitis Continue Aztreonam Continue Flagyl IV hydration Clear fluids by mouth intake Hypertension When necessary enalapril Possible UTI Possible pyelonephritis Chronic kidney disease Aztreonam Is no way to obtain a urine sample Follow renal function Nicotine dependence NicoDerm placed DVT prophylaxis Lovenox Problem Qualifiers (1) Abdominal pain: Qualified Code: R10.10 - Pain of upper abdomen Ryan Jalloh MD December 23, 2016 9:33 am
[2016-12-23 12:00] VITALS: BP 107/69; PULSE 83; RESP 17; TEMP 98; O2SAT 97
[2016-12-23 16:00] VITALS: BP 109/71; PULSE 77; RESP 18; TEMP 98.2; O2SAT 98
[2016-12-23] MEDS: ENOXAPARIN SODIUM 40 MG/0.4 ML SYRINGE SQ SCH (17:25)
[2016-12-23 20:00] VITALS: BP 103/77; PULSE 79; RESP 20; TEMP 97.4; O2SAT 97
[2016-12-23 21:23] LABS: POTASSIUM 3.6 MEQ/L (3.5-5.1)
[2016-12-23 21:26] LABS: BICARBONATE 19.5 MEQ/L (21.0-32.0); MAGNESIUM 1.9 MG/DL (1.5-2.5)
[2016-12-24] VITALS: BP 102/64; PULSE 83; RESP 20; TEMP 96.4; O2SAT 97
[2016-12-24] MEDS: HYDROmorphone HCL PF 1 MG/ML VIAL IV PUSH PRN ×6 (00:13→22:31)
[2016-12-24] MEDS: metroNIDAZOLE 500 MG INJ 100 ML IV SCH ×3 (02:00→18:17)
[2016-12-24] MEDS: AZTREONAM INJ 2,000 MG in SODIUM CHLORIDE 0.9% INJ 100 ML IV SCH ×3 (05:25→22:21)
[2016-12-24] MEDS: SODIUM CHLOR 0.9% 1000 ML INJ 1,000 ML IV SCH ×3 (05:25→14:21)
[2016-12-24 08:00] VITALS: BP 112/78; PULSE 73; RESP 18; TEMP 97.2; O2SAT 95
[2016-12-24] MEDS: PANTOPRAZOLE SODIUM 40 MG VIAL IV PUSH SCH (08:56)
[2016-12-24] MEDS: SODIUM CHLORIDE 0.9% FLUSH 10 ML FLUSH IV FLUSH SCH ×2 (08:56→22:21)
--- NOTE | 2016-12-24 09:50 | HHI.PR ---
Subjective Remarks still with some abdominal pain although she says that the pain is better. no nausea or vomiting. tolerating the liquid diet. Objective Vitals Vital Signs Date Time Temp Pulse Resp B/P Pulse Ox O2 Delivery O2 Flow Rate FiO2 12/24/16 08:00 97.2 73 18 112/78 95 12/24/16 00:00 96.4 83 20 102/64 97 12/23/16 20:00 97.4 79 20 103/77 97 12/23/16 16:00 98.2 77 18 109/71 98 12/23/16 14:32 18 12/23/16 12:00 98.0 83 17 107/69 97 I/O 12/23/16 12/23/16 12/23/16 12/24/16 12/24/16 12/24/16 07:00 15:00 23:00 07:00 15:00 23:00 Intake Total 240 ml 410 ml 480 ml Balance 240 ml 410 ml 480 ml Intake Oral 240 ml 410 ml 480 ml # Voids 2 7 # Bowel Movements 0 2 Result Diagram: 12/23/16 0545 12/23/162104 Imaging Last Impressions Chest X-Ray 12/22/169 Signed Impressions: Service Date/Time: Thursday, December 22, 2016 13:34 - CONCLUSION: No acute disease. Fabio Hernandez MD Abdomen/Pelvis CT 12/22/169 Signed Impressions: Service Date/Time: Thursday, December 22, 2016 15:06 - CONCLUSION: 1. The second portion the duodenum demonstrates wall thickening and perienteric inflammation. These inflammatory changes abut the pancreatic head as well. A duodenitis is the favored etiology and could be infectious or related to inflammation related to ulcer. Alternatively, a groove pancreatitis could give a similar appearance. 2. Stable appearance of the kidneys with atrophic left kidney and air in the collecting system in this patient with history of a cystectomy and neobladder creation. 3. There is a 5 mm low-density lesion in the liver that is too small to characterize. Virgil Holt MD Objective Remarks GENERAL: This is a well-nourished, well-developed patient, in no apparent distress. CARDIOVASCULAR: Regular rate and regular rhythm without murmurs, gallops, or rubs. RESPIRATORY: Clear to auscultation. Breath sounds equal bilaterally. No wheezes , rales, or rhonchi. GASTROINTESTINAL: Abdomen soft, epigastric tenderness, nondistended. Normal, active bowel sounds MUSCULOSKELETAL: Extremities without clubbing, cyanosis, or edema. NEURO: Alert & Oriented x4 to person, place, time, situation. Moves all ext x4 Procedures none Medications and IVs Current Medications Hydromorphone HCl (Dilaudid Pf Inj) 1 mg ONCE ONCE IV Last administered on 13:59; Start 12/22/16 at 13:30; Stop 12/22/16 at 13:31; Status DC Ondansetron HCl 4 mg 4 mg ONCE ONCE IV Last administered on 12/22/16 13:59; Start 12/22/16 at 13:30; Stop 12/22/16 at 13:31; Status DC Aztreonam 2000 mg/ Sodium Chloride 100 ml @ 200 mls/hr ONCE STAT IV Last administered on 12/22/16 13:58; Start 12/22/16 at 13:19; Stop 12/22/16 at 13:48 ; Status DC Sodium Chloride (NS 1000 ml Inj) 1,000 ml @ 999 mls/hr BOLUS ONCE IV Last administered on 12/22/16 13:58; Start 12/22/16 at 13:45; Stop 12/22/16 at 14:45 ; Status DC Iohexol (Omnipaque 350 Inj) 85 ml STK-MED ONCE IV Last administered on 15:20; Start 12/22/16 at 15:20; Stop 12/22/16 at 15:21; Status DC Ondansetron HCl 4 mg 4 mg ONCE ONCE IV PUSH Last administered on 12/22/16 15: 37; Start 12/22/16 at 15:45; Stop 12/22/16 at 15:46; Status DC Sodium Chloride (NS 1000 ml Inj) 1,000 ml @ 100 mls/hr Q10H IV ; Start at 16:47; Stop 12/22/16 at 17:50; Status DC Sodium Chloride (NS Flush) 2 ml UNSCH PRN IV FLUSH FLUSH AFTER USING IV ACCESS ; Start 12/22/16 at 17:00 Sodium Chloride (NS Flush) 2 ml BID IV FLUSH Last administered on 12/23/16 09: 31; Start 12/22/16 at 21:00 Ondansetron HCl (Zofran Inj) 4 mg Q6H PRN IVP NAUSEA OR VOMITING Last administered on 12/23/16 17:26; Start 12/22/16 at 17:00 Enoxaparin Sodium (Lovenox Inj) 40 mg Q24H SQ Last administered on 12/23/16 17 :25; Start 12/22/16 at 18:00 Naloxone HCl (Narcan Inj) 0.4 mg UNSCH PRN IV SEE LABEL COMMENTS; Start at 17:00 Hydromorphone HCl (Dilaudid Pf Inj) 1 mg ONCE ONCE IV PUSH Last administered on 12/22/16 17:55; Start 12/22/16 at 18:00; Stop 12/22/16 at 18:01; Status DC Hydromorphone HCl 0.5 mg 0.5 mg Q4H PRN IV PUSH PAIN SCALE 4 TO 10 Last administered on 12/22/16 21:38; Start 12/22/16 at 17:45; Stop 12/22/16 at 23:42 ; Status DC Sodium Chloride (NS 1000 ml Inj) 1,000 ml @ 125 mls/hr Q8H IV Last administered on 12/24/16 08:56; Start 12/22/16 at 17:45 Enalaprilat 1.25 mg 1.25 mg Q6H PRN IV PUSH SBP>160, DBP>90; Start 12/22/16 at 17:45 Aztreonam 2000 mg/ Sodium Chloride 100 ml @ 200 mls/hr Q8H IV Last administered on 12/24/16 05:25; Start 12/22/16 at 22:00 Metronidazole (Flagyl 500 Mg Inj) 100 ml @ 100 mls/hr Q8H IV Last administered on 12/24/16 08:55; Start 12/22/16 at 18:00 Pantoprazole Sodium (Protonix Inj) 40 mg DAILY IV PUSH Last administered on 08:56; Start 12/22/16 at 23:45 Hydromorphone HCl (Dilaudid Pf Inj) 1 mg Q4H PRN IV PUSH PAIN SCALE 4 TO 10 Last administered on 12/24/16 06:11; Start 12/23/16 at 01:45 A/P Assessment and Plan A/P Sepsis Resolved will deescalate the antibiotics soon if remains fever free with negative blood cultures. Acute abdominal pain. Duodenitis ( reports recent use of motrin for one week) Continue Aztreonam Continue Flagyl IV hydration Clear fluids by mouth intake continue PPI consult GI Hypertension When necessary enalapril Possible UTI Possible pyelonephritis Chronic kidney disease Aztreonam Is no way to obtain a urine sample Follow renal function Nicotine dependence NicoDerm placed DVT prophylaxis Luis Santana MD December 24, 2016 09:50
[2016-12-24 12:00] VITALS: BP 108/81; PULSE 80; RESP 18; TEMP 97.3; O2SAT 97
[2016-12-24 16:00] VITALS: BP 133/78; PULSE 76; RESP 18; TEMP 97; O2SAT 97
--- NOTE | 2016-12-24 17:39 | MB ---
cc: ALEX MADDOX DATE OF CONSULTATION: 12/24/2016. REASON FOR CONSULTATION: Abdominal pain, abnormal CT scan. DATE OF : 11/17/1955. REFERRING PHYSICIAN: Dr. Ryan Jalloh. HISTORY OF PRESENT ILLNESS: Thank you for the consultation. This is a 51-year-old lady who is complaining of abdominal pain in the midepigastric area. No significant radiation. The pain is 8/9. The patient states it has been going on for a few days. Apparently she has history of pyelonephritis in the past. She came to the emergency room with back pain a few days ago. She was given pain medication and NSAIDs. She came back on Wednesday with pain again. She has a urinary tract infection with abnormal urinary anatomy because of trauma to the bladder with multiple surgeries in the past. She had a CT scan which showed abnormal duodenum, possible duodenitis with possible pancreatitis. PAST MEDICAL HISTORY: Her past medical history is significant for: 1. Pyelonephritis. 2. Chronic kidney disease. 3. Bladder malformation. 4. Appendectomy. 5. Tonsillectomy. 6. Ureter surgical placement. REVIEW OF SYSTEMS: All twelve points negative except for the history of present illness. MEDICATIONS: Reviewed in the chart. ALLERGIES: 1. VANCOMYCIN. 2. TETRACYCLINE. 3. PENICILLIN. 4. ERYTHROMYCIN. 5. AMPICILLIN. SOCIAL HISTORY: SHE smokes half a pack a day. Rare alcohol. No drugs. FAMILY HISTORY: Significant for lung cancer. PHYSICAL EXAMINATION: GENERAL: Alert, oriented, in no acute distress. Morbid obesity. VITAL SIGNS: Vital signs are stable. HEAD, EYES, EARS, NOSE, THROAT: Pupils are round and reactive to light. NECK: The neck is supple. CHEST: Clear to auscultation and percussion. CARDIAC: Regular rate and rhythm. ABDOMEN: Soft. Mid-epigastric tenderness with some rebound. Obese. No hepatosplenomegaly. EXTREMITIES: No edema, clubbing or cyanosis. NEUROLOGIC: Neurologically intact. PSYCHIATRIC: Psychologically appropriate. LABORATORY DATA: White count 13.2 down from 15.9, hemoglobin 11.8, platelet 373,000. INR 1.1. Liver function tests completely normal. Total bilirubin 0.4, AST 8, ALT 12, alkaline phosphatase 71, BUN 9. IMAGING STUDIES: CT scan showed second portion of the duodenum showing wall thickening and perienteric inflammation. These changes abut the pancreatic head and could be infection or inflammation. The patient take PPI. The patient also has a kidney changes. No other findings on the GI tract. ASSESSMENT AND PLAN: A 51-year-old lady with abdominal pain and abnormal CT scan. This could be peptic ulcer disease or duodenitis. I am planning on doing upper endoscopy tomorrow to evaluate the duodenum and to take biopsy. I discussed with the patient the procedure and the complications and she agreed to have it done. This will be done tomorrow. Meanwhile, will continue supportive care. Avoid NSAIDs. Continue proton pump inhibitor. MD TRICIA Guzman/NEEMA /4:56 PM /5:31 PM
[2016-12-24] MEDS: ENOXAPARIN SODIUM 40 MG/0.4 ML SYRINGE SQ SCH (18:15)
[2016-12-24 20:00] VITALS: BP 99/72; PULSE 88; RESP 18; TEMP 97.8; O2SAT 97
[2016-12-24] MEDS: ONDANSETRON HCL 4 MG/2 ML VIAL IVP PRN (22:21)
[2016-12-25] VITALS: BP 81/61; PULSE 80; RESP 20; TEMP 96.8; O2SAT 98
[2016-12-25] MEDS: SODIUM CHLOR 0.9% 1000 ML INJ 1,000 ML IV SCH ×2 (00:01→09:11)
[2016-12-25] MEDS: metroNIDAZOLE 500 MG INJ 100 ML IV SCH ×2 (02:04→09:12)
[2016-12-25 04:00] VITALS: BP 101/73; PULSE 83; RESP 20; TEMP 97.5; O2SAT 98
[2016-12-25] MEDS: AZTREONAM INJ 2,000 MG in SODIUM CHLORIDE 0.9% INJ 100 ML IV SCH (06:14)
[2016-12-25 07:02] VITALS: BP 101/73; PULSE 83; RESP 20; TEMP 97.5; O2SAT 98
--- NOTE | 2016-12-25 07:52 | GIPROC ---
[facility] [address] [place] [address], [id number] EGD PROCEDURE REPORT EXAM DATE: 12/25/2016 PATIENT NAME: Ora Marley MR #: [id number] BIRTHDATE: 1965 ATTENDING: Slick Bernard MD ORDER #: [id number] LOCOMOTIVE ENGINEER ELECTRIC: Miya Santo and Nigel Espinal STATUS: inpatient INDICATIONS: The patient is a 51 yr old female here for an EGD due to epigastric abdominal pain and abnormal CT of duodenum PROCEDURE PERFORMED: EGD w/ biopsy MEDICATIONS: None and Per Anesthesia. TOPICAL ANESTHETIC: none CONSENT: The patient understands the risks and benefits of the procedure and understands that these risks include, but are not limited to: sedation, allergic reaction, infection, perforation and/or bleeding. Alternative means of evaluation and treatment include, among others: physical exam, x-rays, and/or surgical intervention. The patient elects to proceed with this endoscopic procedure. medical equipment was checked for proper function. Hand hygiene and appropriate measures for infection prevention was taken. After the risks, benefits and alternatives of the procedure were thoroughly explained, Informed consent was verified, confirmed and timeout was successfully executed by the treatment team. The patient was anesthetized with topical anesthesia and the EC-[id number] (Pedi C) endoscope was introduced through the mouth and advanced to the third portion of the duodenum. Retroflexed views revealed no abnormalities The gastroscope was then slowly withdrawn and removed. Mild esophagitis. Multiple ulcers in the stomach, one was deep in the antrum Bx done. Large duodenal ulcer deep in the bulb Bx done. The endoscopy was otherwise normal. ADVERSE EVENTS: There were no complications. IMPRESSIONS: 1. Mild esophagitis 2. Multiple ulcers in the stomach, one was deep in the antrum Bx done 3. Large duodenal ulcer deep in the bulb Bx done 4. Normal endoscopy otherwise 5. Retroflexed views revealed no abnormalities RECOMMENDATIONS: 1. Await biopsy results. Biopsy results will not be ready for 7-10 days. If you don't hear from us in two weeks, call our office for biopsy results. 2. Anti-reflux regimen 3. Avoid NSAIDS 4. Protonix 40mg BID 5. Gastrin level PATIENT CONDITION: stable DISPOSITION: Inpatient REPEAT EXAM: Return 6 weeks EGD Slick Bernard MD eSigned: Slick Bernard MD 12/25/2016 7:52 AM cc: PATIENT NAME: Donell Ora Sonja MR#: [id number]
[2016-12-25 08:00] VITALS: BP 135/92; PULSE 85; RESP 20; TEMP 97; O2SAT 99
--- NOTE | 2016-12-25 08:01 | HHI.GIFU ---
Subjective Remarks abdominal pain improved, seems more comfortable Objective Vitals I&O Vital Signs Date Time Temp Pulse Resp B/P Pulse Ox O2 Delivery O2 Flow Rate FiO2 12/25/16 07:02 97.5 83 20 101/73 98 12/25/16 04:00 97.5 83 20 101/73 98 12/25/16 00:00 96.8 80 20 81/61 98 12/24/16 20:00 97.8 88 18 99/72 97 12/24/16 16:00 97.0 76 18 133/78 97 12/24/16 12:00 97.3 80 18 108/81 97 12/24/16 08:00 97.2 73 18 112/78 95 I/O 12/24/16 12/24/16 12/24/16 12/25/16 12/25/16 12/25/16 07:00 15:00 23:00 07:00 15:00 23:00 Intake Total 480 ml 1800 ml 535 ml 0 ml Balance 480 ml 1800 ml 535 ml 0 ml Intake Oral 480 ml 850 ml 60 ml 0 ml IV Total 950 ml 475 ml # Voids 7 6 5 1 # Bowel Movements 2 0 0 Laboratory Date/Time Procedure Status Source Growth 12/22/16 13:45 Aerobic Blood Culture - Preliminary Resulted Blood Peripheral NO GROWTH IN 2 DAYS 12/22/16 13:45 Anaerobic Blood Culture - Preliminary Resulted Blood Peripheral NO GROWTH IN 2 DAYS Physical Exam HEENT: Pupils round and reactive to light; normocephalic; atraumatic; no jaundice. Throat is clear. NECK: Neck is supple, no JVD, no lymphadenopathy. CHEST: Chest is clear to auscultation and percussion. CARDIAC: Regular rate and rhythm with no murmur gallop or rubs. ABDOMEN: Soft, nondistended, mild abdominal tenderness; no hepatosplenomegaly; bowel sounds are present in all four quadrants. EXTREMITIES: No clubbing, cyanosis, or edema. SKIN: Normal; no rash; no jaundice. 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 Assessment and Plan Plan abdominal pain, EGD showed mild esophagitis, large duodenal ulcer, multiple gastric ulcers recommendation 1- no NSAIDs 2- check gastrin level 3- Protonix 40 mg po BID 4- november feed patient. Slick Bernard MD December 25, 2016 08:01
[2016-12-25] MEDS ORDERED: PROPOFOL 200 MG/20 ML AMP IV ONE (08:22)
[2016-12-25] MEDS: SODIUM CHLORIDE 0.9% FLUSH 10 ML FLUSH IV FLUSH SCH (09:00)
[2016-12-25] MEDS: PANTOPRAZOLE SODIUM 40 MG VIAL IV PUSH SCH (09:11)
--- NOTE | 2016-12-25 09:39 | HHI.PR ---
Subjective Remarks resting comfortably with no distress. started on regular diet which she's tolerating so far. no nausea or vomiting. Objective Vitals Vital Signs Date Time Temp Pulse Resp B/P Pulse Ox O2 Delivery O2 Flow Rate FiO2 12/25/16 08:05 84 16 109/75 100 12/25/16 08:00 88 16 113/71 97 12/25/16 08:00 97.0 85 20 135/92 99 12/25/16 07:55 97.2 94 16 116/78 95 12/25/16 07:02 97.5 83 20 101/73 98 12/25/16 04:00 97.5 83 20 101/73 98 12/25/16 00:00 96.8 80 20 81/61 98 12/24/16 20:00 97.8 88 18 99/72 97 12/24/16 16:00 97.0 76 18 133/78 97 12/24/16 12:00 97.3 80 18 108/81 97 I/O 12/24/16 12/24/16 12/24/16 12/25/16 12/25/16 12/25/16 07:00 15:00 23:00 07:00 15:00 23:00 Intake Total 480 ml 1800 ml 535 ml 0 ml 250 ml Balance 480 ml 1800 ml 535 ml 0 ml 250 ml Intake Oral 480 ml 850 ml 60 ml 0 ml IV Total 950 ml 475 ml 250 ml # Voids 7 6 5 1 2 # Bowel Movements 2 0 0 Result Diagram: 12/23/16 0545 12/23/16 2105 Imaging Last Impressions Chest X-Ray 12/22/169 Signed Impressions: Service Date/Time: Thursday, December 22, 2016 13:34 - CONCLUSION: No acute disease. Fabio Hernandez MD Abdomen/Pelvis CT 12/22/16 1319 Signed Impressions: Service Date/Time: Thursday, December 22, 2016 15:06 - CONCLUSION: 1. The second portion the duodenum demonstrates wall thickening and perienteric inflammation. These inflammatory changes abut the pancreatic head as well. A duodenitis is the favored etiology and could be infectious or related to inflammation related to ulcer. Alternatively, a groove pancreatitis could give a similar appearance. 2. Stable appearance of the kidneys with atrophic left kidney and air in the collecting system in this patient with history of a cystectomy and neobladder creation. 3. There is a 5 mm low-density lesion in the liver that is too small to characterize. Virgil Holt MD Objective Remarks GENERAL: This is a well-nourished, well-developed patient, in no apparent distress. CARDIOVASCULAR: Regular rate and regular rhythm without murmurs, gallops, or rubs. RESPIRATORY: Clear to auscultation. Breath sounds equal bilaterally. No wheezes , rales, or rhonchi. GASTROINTESTINAL: Abdomen soft, epigastric tenderness, nondistended. Normal, active bowel sounds MUSCULOSKELETAL: Extremities without clubbing, cyanosis, or edema. NEURO: Alert & Oriented x4 to person, place, time, situation. Moves all ext x4 Procedures EGD Medications and IVs Current Medications Hydromorphone HCl (Dilaudid Pf Inj) 1 mg ONCE ONCE IV Last administered on 13:59; Start 12/22/16 at 13:30; Stop 12/22/16 at 13:31; Status DC Ondansetron HCl 4 mg 4 mg ONCE ONCE IV Last administered on 12/22/16 13:59; Start 12/22/16 at 13:30; Stop 12/22/16 at 13:31; Status DC Aztreonam 2000 mg/ Sodium Chloride 100 ml @ 200 mls/hr ONCE STAT IV Last administered on 12/22/16 13:58; Start 12/22/16 at 13:19; Stop 12/22/16 at 13:48 ; Status DC Sodium Chloride (NS 1000 ml Inj) 1,000 ml @ 999 mls/hr BOLUS ONCE IV Last administered on 12/22/16 13:58; Start 12/22/16 at 13:45; Stop 12/22/16 at 14:45 ; Status DC Iohexol (Omnipaque 350 Inj) 85 ml STK-MED ONCE IV Last administered on 15:20; Start 12/22/16 at 15:20; Stop 12/22/16 at 15:21; Status DC Ondansetron HCl 4 mg 4 mg ONCE ONCE IV PUSH Last administered on 12/22/16 15: 37; Start 12/22/16 at 15:45; Stop 12/22/16 at 15:46; Status DC Sodium Chloride (NS 1000 ml Inj) 1,000 ml @ 100 mls/hr Q10H IV ; Start at 16:47; Stop 12/22/16 at 17:50; Status DC Sodium Chloride (NS Flush) 2 ml UNSCH PRN IV FLUSH FLUSH AFTER USING IV ACCESS ; Start 12/22/16 at 17:00 Sodium Chloride (NS Flush) 2 ml BID IV FLUSH Last administered on 12/24/16 22: 21; Start 12/22/16 at 21:00 Ondansetron HCl (Zofran Inj) 4 mg Q6H PRN IVP NAUSEA OR VOMITING Last administered on 12/24/16 22:21; Start 12/22/16 at 17:00 Enoxaparin Sodium (Lovenox Inj) 40 mg Q24H SQ Last administered on 12/24/16 18 :15; Start 12/22/16 at 18:00 Naloxone HCl (Narcan Inj) 0.4 mg UNSCH PRN IV SEE LABEL COMMENTS; Start at 17:00 Hydromorphone HCl (Dilaudid Pf Inj) 1 mg ONCE ONCE IV PUSH Last administered on 12/22/16 17:55; Start 12/22/16 at 18:00; Stop 12/22/16 at 18:01; Status DC Hydromorphone HCl 0.5 mg 0.5 mg Q4H PRN IV PUSH PAIN SCALE 4 TO 10 Last administered on 12/22/16 21:38; Start 12/22/16 at 17:45; Stop 12/22/16 at 23:42 ; Status DC Sodium Chloride (NS 1000 ml Inj) 1,000 ml @ 125 mls/hr Q8H IV Last administered on 12/25/16 09:11; Start 12/22/16 at 17:45 Enalaprilat 1.25 mg 1.25 mg Q6H PRN IV PUSH SBP>160, DBP>90; Start 12/22/16 at 17:45 Aztreonam 2000 mg/ Sodium Chloride 100 ml @ 200 mls/hr Q8H IV Last administered on 12/25/16 06:14; Start 12/22/16 at 22:00 Metronidazole (Flagyl 500 Mg Inj) 100 ml @ 100 mls/hr Q8H IV Last administered on 12/25/16 09:12; Start 12/22/16 at 18:00 Pantoprazole Sodium (Protonix Inj) 40 mg DAILY IV PUSH Last administered on 09:11; Start 12/22/16 at 23:45 Hydromorphone HCl (Dilaudid Pf Inj) 1 mg Q4H PRN IV PUSH PAIN SCALE 4 TO 10 Last administered on 12/24/16 22:31; Start 12/23/16 at 01:45 Propofol (Diprivan 200 Mg/20 ml Inj) 200 mg STK-MED ONCE IV ; Start 12/25/16 at 08:22; Stop 12/25/16 at 08:23; Status DC A/P Assessment and Plan A/P SIRS Resolved cultures negative. dc abx. Acute abdominal pain-improved. Duodenitis ( reports recent use of motrin for one week) s/p EGD with multiple gastric ulcers and large duodenal ulcer biopsy to be followed up. to avoid NSAIDs continue protonix 40 mg bid gastrin level- to be followed up as outpatient. f/u with GI as outpatient elevated BP's- better When necessary enalapril Nicotine dependence NicoDerm placed DVT prophylaxis Lovenox Discharge Planning dc home later this afternoon if tolerating the diet. see med list. f/u with pcp and GI. d/w the patient. Luis Vicente MD December 25, 2016 09:39
[2016-12-25] MEDS ORDERED: PROT40TA PO ×2 (09:40→09:48)
--- NOTE | 2016-12-25 09:40 | HHI.DCPOC ---
Discharge Care Plan Diagnosis: (1) Peptic ulcer disease Additional Problems abdominal pain. Goals to Promote Your Health * To prevent worsening of your condition and complications * To maintain your health at the optimal level Directions to Meet Your Goals Take your medications as prescribed Follow your dietary instruction Follow activity as directed Keep your appointments as scheduled Take your immunizations and boosters as scheduled If your symptoms worsen call your PCP, if no PCP go to Urgent Care Center or Emergency Room Smoking is Dangerous to Your Health. Avoid second hand smoke Call the 24-hour hour crisis hotline for domestic abuse at Luis Vicente MD December 25, 2016 09:40
--- NOTE | 2016-12-25 09:41 | HHI.DS ---
Discharge Summary Admission Date December 22, 2016 at 15:49 Discharge Date: December 25, 2016 Admitting Diagnosis ABDOMINAL PAIN, UTI (1) Peptic ulcer disease ICD Code: K27.9 Diagnosis: Principal Procedures EGD Brief History - From Admission Mrs. Marley is a 51-year-old female. She has a history of 8-9 blood or surgeries as a child and currently has both ureters and tingling into the small intestine. She is here today with complaints of fatigue and upper abdominal pain. She reports that approximately once every 2 years she ends up getting pyelonephritis. Typically her symptoms are severe back pain and fevers. She has been feeling fevers and chills at home but her pain is located at the epigastrium. Imaging shows evidence of duodenitis. Given her abnormal urinary anatomy there would be no way to test make sure that she doesn't have development of a urinary tract infection again. In the past she has had an appendectomy and a tonsillectomy. She is a smoker and smokes approximately one half pack per day. Leukocytosis is present. Abdominal pain is her primary complaint. She requests pain medicine when seen. Leukocytosis and tachycardia are present, no fever, with source of duodenitis as likely bacterial infection disqualifies her for sepsis. CBC/BMP: 12/23/16 0545 12/23/16 2105 Significant Findings Laboratory Tests Test 12/22/16 12/22/16 12/23/16 12/23/16 13:45 14:15 05:45 21:05 White Blood Count 15.9 TH/MM3 13.2 TH/MM3 (4.0-11.0) (4.0-11.0) Neutrophils (%) (Auto) 76.7 % 71.5 % (16.0-70.0) (16.0-70.0) Eosinophils (%) (Auto) 4.1 % (0.0-4.0) 4.7 % (0.0-4.0) Basophils (%) (Auto) 2.8 % (0.0-2.0) Neutrophils # (Auto) 12.2 TH/MM3 9.5 TH/MM3 (1.8-7.7) (1.8-7.7) Monocytes # (Auto) 1.1 TH/MM3 1.1 TH/MM3 (0-0.9) (0-0.9) Eosinophils # (Auto) 0.7 TH/MM3 0.6 TH/MM3 (0-0.4) (0-0.4) Basophils # (Auto) 0.4 TH/MM3 (0-0.2) Prothrombin Time 11.9 SEC (9.8-11.6) Chloride Level 111 MEQ/L 111 MEQ/L 115 MEQ/L (98-107) (98-107) (98-107) Estimat Glomerular Filtration 71 ML/MIN (>89) 83 ML/MIN (>89) 83 ML/MIN (>89) Rate Random Glucose 109 MG/DL (74-106) Calcium Level 8.3 MG/DL 8.2 MG/DL 8.3 MG/DL (8.5-10.1) (8.5-10.1) (8.5-10.1) Aspartate Amino Transf 6 U/L (15-37) 8 U/L (15-37) (AST/SGOT) Total Protein 6.2 GM/DL 6.2 GM/DL (6.4-8.2) (6.4-8.2) Albumin 3.0 GM/DL 2.8 GM/DL (3.4-5.0) (3.4-5.0) Lipase 68 U/L (73-393) Red Blood Count 3.89 MIL/MM3 (4.00-5.30) Monocytes (%) (Auto) 8.6 % (0.0-8.0) Carbon Dioxide Level 19.7 MEQ/L 19.5 MEQ/L (21.0-32.0) (21.0-32.0) Imaging Last Impressions Chest X-Ray 12/22/161318 Signed Impressions: Service Date/Time: Thursday, December 22, 2016 13:34 - CONCLUSION: No acute disease. Fabio Hernandez MD Abdomen/Pelvis CT 12/22/161318 Signed Impressions: Service Date/Time: Thursday, December 22, 2016 15:06 - CONCLUSION: 1. The second portion the duodenum demonstrates wall thickening and perienteric inflammation. These inflammatory changes abut the pancreatic head as well. A duodenitis is the favored etiology and could be infectious or related to inflammation related to ulcer. Alternatively, a groove pancreatitis could give a similar appearance. 2. Stable appearance of the kidneys with atrophic left kidney and air in the collecting system in this patient with history of a cystectomy and neobladder creation. 3. There is a 5 mm low-density lesion in the liver that is too small to characterize. Virgil Holt MD PE at Discharge GENERAL: This is a well-nourished, well-developed patient, in no apparent distress. CARDIOVASCULAR: Regular rate and regular rhythm without murmurs, gallops, or rubs. RESPIRATORY: Clear to auscultation. Breath sounds equal bilaterally. No wheezes , rales, or rhonchi. GASTROINTESTINAL: Abdomen soft, epigastric tenderness, nondistended. Normal, active bowel sounds MUSCULOSKELETAL: Extremities without clubbing, cyanosis, or edema. NEURO: Alert & Oriented x4 to person, place, time, situation. Moves all ext x4 Hospital Course SIRS Resolved cultures negative. dc abx. Acute abdominal pain-improved. Duodenitis ( reports recent use of motrin for one week) s/p EGD with multiple gastric ulcers and large duodenal ulcer biopsy to be followed up. to avoid NSAIDs gastrin level- to be followed up as outpatient. continue protonix 40 mg bid f/u with GI as outpatient elevated BP's- better When necessary enalapril Nicotine dependence NicoDerm placed DVT prophylaxis Lovenox Pt Condition on Discharge: Fair Discharge Disposition: Discharge Home Discharge Time: <= 30 minutes Discharge Instructions DIET: Follow Instructions for: Heart Healthy Diet Activities you can perform: Regular-No Restrictions Follow up Referrals: Gastroenterology PCP Follow-up New Medications: Hydrocodone-Acetaminophen ([place]) 5-325 mg Tab 1 TAB PO Q6H PRN PAIN #10 Ref 0 TAB Pantoprazole (Protonix) 40 Mg Tab 40 MG PO BID Reflux Days 30 Ref 0 TAB Continued Medications: Promethazine (Phenergan) 50 Mg Tab 50 MG PO Q6H PRN NAUSEA OR VOMITING #10 Ref 0 TAB Discontinued Medications: Ciprofloxacin (Cipro) 250 Mg Tab 750 MG PO BID Infection Days 7 Ref 0 TAB Luis Vicente MD December 25, 2016 09:41
[2016-12-25] MEDS ORDERED: NORC5TAB PO (09:47)
[2016-12-25] MEDS ORDERED: CARA1TAB6 PO (11:45)
[2016-12-25 12:00] VITALS: BP 105/75; PULSE 84; RESP 20; TEMP 97.2; O2SAT 97
== END 2016-12-25 14:15 | disposition home or self-care (01) | DRG 872 ==
LOC: PHED 12:52 → PHEDA 15:49 → PH3A 16:17
PROVIDERS: ADMIT Internal Medicine; ATTEND Internal Medicine
PROC: 0DB68ZX Excision of Stomach, Via Natural or Artificial Opening Endoscopic, Diagnostic (ICD-10-PCS; 2016-12-25)
PROC: 0DB98ZX Excision of Duodenum, Via Natural or Artificial Opening Endoscopic, Diagnostic (ICD-10-PCS; principal; 2016-12-25 07:38)
DX: A41.9 Sepsis, unspecified organism (principal); N12 Tubulo-interstitial nephritis, not specified as acute or chronic; K26.9 Duodenal ulcer, unspecified as acute or chronic, without hemorrhage or perforation; K25.9 Gastric ulcer, unspecified as acute or chronic, without hemorrhage or perforation; E66.01 Morbid (severe) obesity due to excess calories; I12.9 Hypertensive chronic kidney disease with stage 1 through stage 4 chronic kidney disease, or unspecified chronic kidney disease; F17.210 Nicotine dependence, cigarettes, uncomplicated; Z88.1 Allergy status to other antibiotic agents; Z88.0 Allergy status to penicillin; K29.80 Duodenitis without bleeding; N18.9 Chronic kidney disease, unspecified; K20.9 Esophagitis, unspecified; Z93.6 Other artificial openings of urinary tract status
CPT/HCPCS: 71010; 74176; 74177; 80048; 80053; 82941; 83605; 83690; 83735; 85025; 85610; 85730; 87040; 88305; 88312; 96361; 96365; 96374; 96375; 96376; C9113; J0744; J1170; J1650; J1885; J2405; J7030; Q9967